=== PATIENT | male | born 1940 | race Caucasian/White ===

== ENCOUNTER 2025-07-18 11:40 | Outpatient (AMB) | payer BC, SELFPAY ==
--- NOTE | 2025-07-18 12:30 | MHC.OFFVIS ---
Intake Visit Reasons: ENP-Tremors with Memory Loss HPI Comments Details: This 85-year-old man with a history of hypertension and hyperlipidemia who has noted intermittent tremor in his hands in the last 6-12 months and has noted that sometimes when he is talking to his his voice gets very low as if things are being sucked in in his neck. After a while he sneezes a few times and then can talk better. His walking has become little bit slower. He is still exercising and doing yoga. He goes to the gym twice a week. He is being treated for anemia. [facility] Medical History (Updated 07/18/25 @ 12:43 by Dorian Alcantar MD) Glaucoma Cataracts, bilateral Hernia GERD (gastroesophageal reflux disease) PVD (peripheral vascular disease) Heart murmur Proteinuria Myalgia Colonic polyp Actinic keratitis Diabetic foot ulcer Enlarged prostate with lower urinary tract symptoms (LUTS) Polyosteoarthritis Achilles bursitis or tendinitis Edema Allergic rhinitis Lipoma Skin tag Low back pain Rosacea Psoriasis Diabetes mellitus Mild cognitive impairment Vitamin D deficiency Hyperplasia of prostate without urinary obstruction Obesity Osteoarthritis IFG (impaired fasting glucose) Sleep apnea Hyperlipemia HTN (hypertension) Surgical History (Updated 07/16/25 @ 14:15 by MICHAEL Hussein) Hx of tonsillectomy History of cataract surgery H/O hernia repair Review of Systems Const Details: Tremors in the hands. Occasional change in his voice. General slowing down. Physical Exam Neuro Other: ?Mini Mental Status Exam Level of Consciousness:?Alert.? Orientation:?Knows correct year, month, date, day and season.?Knows correct city, county and state. Knows correct location and floor.? Registration:?Able to register 3 objects.? Attention:?Serial 7's performed accurately.? Recall:?Able to recall 3 out of 3 objects.? Language:?Normal spontaneous speech, fluency, repetition, naming, comprehension, reading, and writing.? Total Score:?30/30.? Neurological Abnormal neurological findings:??Mild decrease in facial expression: Intermittent resting tremor of the left hand. Mild cogwheeling bilaterally. Decrease in arm swing on walking and turns EN bloc. No shuffling. Mild increase in salivation.? Mental Status:?Alert and oriented X 3.?Normal attention, orientation, memory, and affect.? Cranial Nerves:?Pupils are equal, round and reactive to light. Fundoscopy shows normal disc bilaterally. External occular muscles are intact. Visual mclain are full, no ptosis. Face is symmetrical, no facial weakness or droop. Facial sensations are normal. Tongue protrudes in midline. Palate elevates symmetrically. Shoulder shrugging is normal.? Motor Examination:?Normal muscle tone, bulk and strength.?No atrophy or fasciculations.?No drift of the extended upper extremities.?Deep tendon reflexes are 2+.?Plantars are flexor.? Motor Strength:? Proximal Muscles (out of 5):?5 Distal Muscles (out of 5):?5 Neck Flexors (out of 5):?5 Neck Extensors (out of 5):?5 Deltoid (out of 5):?5 Biceps (out of 5):?5 Triceps (out of 5):?5 Serratus Anterior (out of 5):?5 Wrist Extensors (out of 5):?5 APB (out of 5):?5 Finger Spread (out of 5):?5 Ileopsoas (out of 5):?5 Quadriceps (out of 5):?5 Hamstrings (out of 5):?5 Tibialis Anterior (out of 5):?5 Peronei (out of 5):?5 EDB (out of 5):?5 Gastrocnemius (out of 5):?5 Straight Leg Raising:?90 degrees.? Sensory Exam:?Normal light touch, temperature, pinprick, vibration and joint-position sensations.?Rhomberg sign is absent.? Coordination:?No ataxia,?no titubation,?arsbow-ym-uxze, lprf-qieg-hgnm test, and rapid alternating movements were normal.? Gait Exam:?Within normal limits.? Cerebellar Signs:?Eglhwy-kq-pkjz and kjyv-zl-ekrx is normal.?No dysdiadochokinesia.? Extrapyramidal System:? Some parkinsonian features as described above.No propulsion or retropulsion.? Speech:?Normal,?no dysphasia or dysarthria.? General Examination GENERAL APPEARANCE:??normal,?in no acute distress?,?normal,?in no acute distress.? HEAD:??normocephalic,?atraumatic.? EYES:??sclera non-icteric,?conjunctiva clear.? EARS:??auditory canal clear,?tympanic membrane intact, clear.? NOSE:??no lesions.? ORAL CAVITY:??gums normal,?mucosa moist,?no lesions.? THROAT:??clear.? NECK/THYROID:??no cervical lymphadenopathy,?thyroid normal,?neck supple, full range of motion,?no carotid bruit.? SKIN:??no rashes,?no significant birthmarks.? HEART:??S1, S2 normal,?no murmurs?,?S1, S2 normal,?no murmurs.? LUNGS:??clear anteriorly and posteriorly?,?clear anteriorly and posteriorly.? CHEST:??no gross rib deformity,?clear to auscultation.? BACK:??normal exam of spine.? MUSCULOSKELETAL:??normal.? EXTREMITIES:??no edema?,?no edema.? PERIPHERAL PULSES:??normal.? PSYCH:??alert, oriented,?cognitive function intact,?cooperative with exam?,?alert, oriented,?cognitive function intact,?cooperative with exam.? Assessment & Plan Assessment & Plan (1) Parkinson's disease: Code(s): G20 - Parkinson's disease Category: Medical Plan We have discussed the diagnosis and available treatments and have opted at this time not to start any medications. He will monitor his symptoms and will be evaluated by the nurse practitioner in 3 months and I will see him back in follow-up in 6 months. If at any point his symptoms start to get worse, then we will consider starting carbidopa levodopa for symptomatic treatment. In the meantime he will continue with all of his activities exercises yoga and social interactions. Continue other medications Coding Level of Care Code New Pt Level 5 (45295) Diagnoses Parkinson's disease G20
--- OUTSIDE RECORDS SUMMARY | 2025-07-18 16:10 | XMS_ITS | Clinical Summary ---
Author Organization [address] Address [address] [place] [phone] Phone Care Team Providers Care Winterizer Name Role Phone Riki Matos MD Primary Care Provider [phone] Allergies Active Allergy Reactions Criticality Noted Date Comments Pollen Extracts 07/11/2018 Pollen Medications atorvastatin (LIPITOR) 20 mg tablet Take 20 mg by mouth daily. Active atorvastatin (LIPITOR) 20 mg tablet Take 1 Tablet by mouth daily. Active betamethasone dipropionate 0.05 % lotion Apply 1 Dose topically at bedtime. Active cholecalciferol, vitamin D3, 75 mcg (3,000 unit) tablet Take by mouth daily. Active desonide (DESOWEN) 0.05 % cream Apply 0.05 Tubes topically 2 times daily. Active lisinopriL (PRINIVIL,ZESTRIL ) 20 mg tablet Take 20 mg by mouth daily. Active multivitamin tablet Take by mouth daily. Active timolol (TIMOPTIC) 0.5 % ophthalmic solution 1 Drop 2 times daily. Active triamcinolone (KENALOG) 0.1 % cream Apply 1 Dose topically at bedtime. Active aspirin 81 mg EC tablet Take 1 tablet (81 mg total) by mouth every other day. 45 tablet 3 5 Active Active Problems Problem Noted Date Diagnosed Date Arthritis 07/26/2024 Asymptomatic bilateral carotid artery stenosis 1 Ectasia of artery (CMS/HCC V24) 07/26/2024 GERD (gastroesophageal reflux disease) 4 Glaucoma 07/26/2024 HTN (hypertension) 07/26/2024 Hypercholesteremia 07/26/2024 Sleep apnea 07/26/2024 Umbilical hernia 07/26/2024 Surgical History Surgery Date Site/Laterality Comments HERNIA REPAIR PROCEDURE: HISTORICAL HERNIA REPAIR/UMB TONSILLECTOMY PROCEDURE: HISTORICAL TONSILLECTOMY Medical History Medical History Date Comments Sleep apnea DX:Sleep apnea GERD (gastroesophageal reflux disease) DX:GERD (gastroesophageal reflux disease) Umbilical hernia DX:Umbilical he rnia Glaucoma DX:Glaucoma Arthritis DX:Arthritis Hypercholesteremia DX:Hyperchole steremia HTN (hypertension) DX:HTN (hyper tension) Ectasia of artery (CMS/HCC V24) DX:Ectasia of artery (HCC) Asymptomatic bilateral carot id artery stenosis DX:Asymptomatic bilateral ca rotid artery stenosis Family History Medical History Relation Name Comments Cancer of Small Bowel Father Other: melanoma ca Mother Relation Name Status Comments Father Mother Sister Alive Social History Tobacco Use Types Packs/Day Years Used Date Smoking Tobacco: Former Smokeless Tobacco: Never Alcohol Use Standard Drinks/Week Comments Yes 0 (1 standard drink = 0.6 oz pur e alcohol) Sex and Gender Information Value Date Recorded Sex Assigned at Not on file Legal Sex Male 4:54 PM EST Gender Identity Not on file Sexual Orientation Not on file Obstetrics History Last Filed Vital Signs Vital Sign Reading Time Taken Comments Blood Pressure 114/62 10/17/2024 2:35 PM EST Pulse 60 10/17/2024 2:35 PM EST Temperature - - Respiratory Rate - - Oxygen Saturation - - Inhaled Oxygen Concentration - - Weight 75.6 kg (166 lb 9.6 oz) 10/17/2024 2:35 P M EST Height 167.6 cm (5' 6 ) 10/17/2024 2:35 PM EST Body Mass Index 26.89 10/17/2024 2:35 PM EST Plan of Treatment Upcoming Encounters Date Type Department Care Team (Late st Contact Info) Description 07/30/2025 8:30 AM EST Ancillary Procedure [facility] [place] [address] [facility] [address] [place] [address] 10/17/2025 3:00 PM EST Office Visit Vascular Surgery - [place] [address] [facility] [address] [place] [phone] Farhana Da Silva PA [address] [facility] [address] [place] [address] 04/29/2026 10:45 AM EDT Ancillary Procedure [facility] - [address] [place] [address] Health Maintenance Due Date Last Done Comments Zoster Vaccines (1 of 2) 1991 Pneumococcal Vaccine: 50+ Years (2 of 2 - PPSV23, PCV20, or PCV21) 08/19/2015 06/24/2015 Falls Risk Assessment 09/05/2022 Social Influencers of Health Screening 09/05/2022 Depression Screening 09/27/2024 COVID-19 Vaccine ( season) 2025 07/09/2024, 06/12/2024, 06/28/2023, Additional history exists Influenza Vaccine (#1) 2025 , 06/12/2024, 05/30/2023, Additional history exists DTaP,Tdap,and Td Vaccines (2 - Td or Tdap) 04/05/2026 04/05/2016 Hypertension/CHF/CAD Annual BMP Blood Test 04/09/2026 04/09/2025, 11/28/2024, 08/02/2024 Cholesterol Screening (Lipid Panel) 04/09/2030 04/09/2025, 11/28/2024 RSV Immunization Adult Patients Completed 07/09/2024, 06/12/2024 HIB Vaccines Aged Out No longer eligi ble based on patient's age to complete this topic HPV Vaccines Aged Out No longer eligi ble based on patient's age to complete this topic Hepatitis A Vaccines Aged Out No long er eligible based on patient's age to complete this topic Hepatitis B Vaccines Aged Out No long er eligible based on patient's age to complete this topic IPV Vaccines Aged Out No longer eligi ble based on patient's age to complete this topic MMR Vaccines Aged Out No longer eligi ble based on patient's age to complete this topic Meningococcal ACWY Vaccine Aged Out N o longer eligible based on patient's age to complete this topic Meningococcal B Vaccine Aged Out No l onger eligible based on patient's age to complete this topic RSV Immunization Patients Under 20 months Aged Out No longer eligible based on patient's age to complete this topic Varicella Vaccines Aged Out No longer eligible based on patient's age to complete this topic Procedures Procedure Name Priority Date/Time Associated Diagnosis Comments COMPREHENSIVE METABOLIC PANEL Routine 04/09/2025 10:44 AM EDT Intrinsic asthma without status asthmaticus Essential hypertension, 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 V24, [facility] V28) Anemia, unspecified Hyperlipemia Routine general medical examination at a health care facility Senile arthritis Postsurgical hypothyroidism Avitaminosis D from Last 3 Months or Most Recently Relevant to Health Maintenance Results * Lipid panel with reflex to direct LDL (04/09/2025 10:44 AM EDT) Cholesterol 135 0 - 200 mg/dL LAB CHEMISTRY METHOD 04/09/2025 8:55 PM EDT [facility] Triglycerides 45 0 - 150 mg/dL LAB CHEMISTRY METHOD 04/09/2025 8:55 PM EDT [facility] HDL 71 >=40 mg/dL LAB CHEMISTRY METHOD 04/09/2025 8:55 PM EDT [facility] LDL Calculated 55 0 - 100 mg/dL LAB CHEMISTRY METHOD 04/09/2025 8:55 PM EDT [facility] VLDL Cholesterol Yariel 9 mg/dL LAB CHEMISTRY METHOD 04/09/2025 8:55 PM EDT [facility] Non HDL Chol. (LDL+VLDL) 64 <145 mg/dL LAB CHEMISTRY METHOD 04/09/2025 8:55 PM EDT [facility] Chol/HDL Ratio 1.9 0.0 - 4.4 LAB CHEMISTRY METHOD 04/09/2025 8:55 PM [facility] Blood Venous blood specimen / Unknown Venipuncture / Unknown 04/09/2025 10:44 AM EDT 04/09/2025 11:41 AM EDT us Riki Matos MD LAB BLOOD ORDERABLES Final Res ult [facility] [address] [place] [address], * Comprehensive metabolic panel (04/09/2025 10:44 AM EDT) Sodium 135 133 - 145 mmol/L LAB CHEMISTRY METHOD 04/09/2025 8:47 PM [facility] Potassium 4.3 3.5 - 5.5 mmol/L LAB CHEMISTRY METHOD 04/09/2025 8:47 PM [facility] Chloride 102 96 - 110 mmol/L LAB CHEMISTRY METHOD 04/09/2025 8:47 PM [facility] CO2 25 21 - 32 mmol/L LAB CHEMISTRY METHOD 04/09/2025 8:47 PM [facility] Anion Gap 8 3 - 11 LAB CHEMISTRY METHOD 04/09/2025 8:47 PM [facility] Glucose 93 70 - 100 mg/dL LAB CHEMISTRY METHOD 04/09/2025 8:47 PM [facility] BUN 19 5 - 25 mg/dL LAB CHEMISTRY METHOD 04/09/2025 8:47 PM [facility] Creatinine 0.84 0.70 - 1.30 mg/dL LAB CHEMISTRY METHOD 04/09/2025 8:47 PM [facility] eGFR 86 >=60 mL/min/1. 73m2 LAB CHEMISTRY METHOD 04/09/2025 8:47 PM [facility] Comment:Calculation based on the Chronic Kidney Disease Epidemiology Collaboration (CKD-EPI) equation refit without adjustment for race. BUN/Creatinine Ratio 22.6 LAB CHEMISTRY METHOD 04/09/2025 8:47 PM EDT [facility] Calcium 9.6 8.5 - 10.5 mg/dL LAB CHEMISTRY METHOD 04/09/2025 8:47 PM [facility] AST (SGOT) 23 10 - 42 unit/L LAB CHEMISTRY METHOD 04/09/2025 8:47 PM T [facility] ALT (SGPT) 33 10 - 60 unit/L LAB CHEMISTRY METHOD 04/09/2025 8:47 PM [facility] Alkaline Phosphatase 91 42 - 121 unit/L LAB CHEMISTRY METHOD 04/09/2025 8:47 PM [facility] Total Protein 7.0 6.0 - 8.0 g/dL LAB CHEMISTRY METHOD 04/09/2025 8:47 PM T [facility] Albumin 3.7 3.2 - 5.0 g/dL LAB CHEMISTRY METHOD 04/09/2025 8:47 PM [facility] Total Bilirubin 0.5 0.0 - 1.4 mg/dL LAB CHEMISTRY METHOD 04/09/2025 8:47 PM [facility] Blood Venous blood specimen / Unknown Venipuncture / Unknown 04/09/2025 10:44 AM EDT 04/09/2025 11:41 AM EDT us Riki Matos MD LAB BLOOD ORDERABLES Final Res ult [facility] [address] [place] [address], from Last 3 Months or Most Recently Relevant to Health Maintenance Insurance [facility] Advance Directives Documents on File Type Date Recorded Patient Property Staff Accountant Expl anation Health Care Decision (hx) 04/29/2011 AD LAW DIRECTIVE Health Care Decision (hx) 04/29/2011 AD LAW DIRECTIVE Health Care Decision (hx) 04/29/2011 AD LAW DIRECTIVE Health Care Decision (hx) 04/29/2011 AD LAW DIRECTIVE Health Care Decision (hx) 04/29/2011 AD LAW DIRECTIVE Health Care Decision (hx) 04/29/2011 AD LAW DIRECTIVE Health Care Decision (hx) 04/29/2011 AD LAW DIRECTIVE Health Care Decision (hx) 04/29/2011 AD LAW DIRECTIVE Health Care Decision (hx) 04/29/2011 AD LAW DIRECTIVE Health Care Decision (hx) 04/29/2011 AD LAW DIRECTIVE Health Care Decision (hx) 04/29/2011 AD LAW DIRECTIVE Care Teams Winterizer Relationship Specialty Start Date End Date Riki Matos MD [address] [place] [phone] PCP - General Internal Medicine 04/09/25
== END 2025-07-18 12:49 | disposition home or self-care (01) ==
PROVIDERS: Visit Provider Psychiatry & Neurology Neurology
DX: G20.A1 Parkinson's disease without dyskinesia, without mention of fluctuations (principal)
CPT/HCPCS: 99204